=== PATIENT | male | born 1955 | race Caucasian/White ===

== ENCOUNTER 2016-05-13 09:15 | Day surgery (SDC) | payer OTHER ==
[~2016-05-13] VITALS: Ht 167.6 cm; Wt 86.6 kg
[2016-05-13 09:55] VITALS: Ht 167.6 cm; Wt 86.6 kg
[2016-05-13] MEDS ORDERED: LISINOPRIL (09:55)
[2016-05-13 10:10] VITALS: BP 141/84; PULSE 76; RESP 18
[2016-05-13] MEDS ORDERED: MIDAZOLAM 1 MG/ML 2 ML INJ ONE ×2 (10:49)
[2016-05-13] MEDS ORDERED: FENTAnyl 50 MCG/ML VIAL ONE (10:49)
[2016-05-13 11:15] VITALS: BP 138/83; PULSE 77; RESP 24
--- NOTE | 2016-05-13 12:14 | GILP ---
DATE OF PROCEDURE: 05/13/2016 NAME OF PROCEDURE: Colonoscopy up to cecum. PREOPERATIVE DIAGNOSIS: Screening colonoscopy, rule out colon polyps. POSTOPERATIVE DIAGNOSES: 1. Minimal diverticulosis all over the colon with no bleeding noted. 2. Minimal external hemorrhoids which are not bleeding. 3. No polyps. DESCRIPTION OF PROCEDURE: After the informed written consent was obtained, the patient was asked to lie on the left lateral side. Intravenous anesthesia was given which included 3 mg Versed and 100 mcg of fentanyl. When the patient became somnolent, the Olympus video colonoscope was introduced in to the rectum and scope was advanced all the way to the cecum. The entire colon appeared perfectly normal. Occasional diverticula noted which are small in size. No bleeding noted. Scope at this ti me was withdrawn. On the way out, minimal external hemorrhoids were noted. No internal hemorrhoids were noted. It is not actively bleeding. It is small in size, grade I and the procedure was termin ated. PLAN: Recommend repeat colonoscopy in 10 years. Dictated By: KEN GREENE/NTS Conf#: [id number] DID#: [id number] CC: ; KEN ARREAGA MD;*End*
== END 2016-05-13 14:20 | disposition home or self-care (01) ==
LOC: GIL 09:15
PROVIDERS: ATTEND Internal Medicine Gastroenterology
DX: Z12.11 Encounter for screening for malignant neoplasm of colon (principal); K57.90 Diverticulosis of intestine, part unspecified, without perforation or abscess without bleeding; K64.4 Residual hemorrhoidal skin tags
CPT/HCPCS: 45378; J2250; J3010